=== PATIENT | female | born 1950 | race Two or more races ===

== ENCOUNTER 2017-08-18 12:48 | Emergency (ER) | payer OTHER ==
[~2017-08-18] VITALS: Ht 160 cm; Wt 54.9 kg
[2017-08-18] MEDS ORDERED: Ketorolac 30mg Inj IM ONE (13:00)
[2017-08-18] MEDS ORDERED: Methocarbamol 750mg tab ORAL ONE (13:00)
--- NOTE | 2017-08-18 13:10 | Emergency Room Report ---
History of Present Illness General Chief Complaint: Pain Source: Patient (BETH MCINTOSH) Present Illness HPI 67 y/o female c/o right rib pain x 5-6 days. States that she was leaning against a box and felt a pop in her right rib in the area where she suffered a rib fracture 1 year ago. Patient states she has pain with twisting, bending and sitting and that its tender to palpation. States pain is also present when coughing and movements of chest wall. Patient tried 400mg ibuprofen w/o improvement, last taken yesterday. Patient has a hx of osteoperosis and family is worried she may have fractured her rib at site of previous fracture as a result. Patient denies any numbness, tingling, pressure, paralysis, cyanosis, bruising, loss of sensation, loss of range of motion, n/v/f/c/d, abd pain, back pain, neck pain, photophobia, phonophobia, CP, SOB or headache. (BETH MCINTOSH) Allergies: Coded Allergies: No Known Allergies (Unverified , 08/18/17) Patient History Limited by: language barrier Past Medical History: see triage record Pertinent Family History: none Reviewed Nursing Documentation: PMH: Agreed, PSxH: Agreed (BETH MCINTOSH) Nursing Documentation-PMH Past Medical History: No Stated History (BETH MCINTOSH) Review of Systems All Other Systems: negative except mentioned in HPI (BETH MCINTOSH) Physical Exam Vital Signs Date Time Temp Pulse Resp B/P (MAP) Pulse Ox O2 Delivery O2 Flow Rate FiO2 08/18/17 12:58 98.1 60 18 116/61 98 Room Air Sp02 EP Interpretation: reviewed, normal General Appearance: no apparent distress, alert, GCS 15, non-toxic Head: normocephalic, atraumatic Eyes: bilateral eye normal inspection, bilateral eye PERRL ENT: normal ENT inspection, normal pharynx, no angioedema Neck: full range of motion, no bony tend, supple/symm/no masses Respiratory: lungs clear, normal breath sounds, speaking full sentences, chest symmetrical Cardiovascular #1: regular rate, rhythm, no edema Gastrointestinal: non tender, soft Musculoskeletal: back normal, gait/station normal, normal range of motion, tender - right inferior ribs mid axillary line Neurologic: alert, oriented x3, responsive, motor strength/tone normal, sensory intact, speech normal Psychiatric: judgement/insight normal, memory normal, mood/affect normal, no suicidal/homicidal ideation Skin: normal color, no rash, warm/dry, well hydrated (BETH MCINTOSH P.A.) Medical Decision Making PA Attestation Dr. Delacruz is my supervising physician with whom patient management has been discussed with. (BETH MCINTOSH.A.) Diagnostic Impression: Primary Impression: Multiple rib fractures Qualified Codes: S22.41XA - Multiple fractures of ribs, right side, initial encounter for closed fracture ER Course Pt. presents to the ED c/o right rib pain Ddx considered but are not limited to fracture, contusion, sprain, strain, PE, pleurisy, biliary colic Vital signs: are WNL, pt. is afebrile H&PE are most consistent with non displaced fracture of 11th and 12th right ribs. Confirmed by XR and spoke with radiologist. ORDERS: XR Right Ribs w/ AP view is negative ED INTERVENTIONS: Toradol 30mg and Robaxin 750mg. DISCHARGE: At this time pt. is stable for d/c to home. Patient states her pain is well controlled with treatment received. Advised to f/u with PCP next week for management of condition. Will provide printed patient care instructions, and any necessary prescriptions. Care plan and follow up instructions have been discussed with the patient prior to discharge. (BETH MCINTOSH P.A.) Chest X-Ray Diagnostic Results Chest X-Ray Diagnostic Results : Electronically Signed by: Frankie documentation reviewed by me and is accurate, Pj Delacruz MD. (Pj Delacruz M.D.) Other X-Ray Diagnostic Results Other X-Ray Diagnostic Results : # of Views/Limited Vs Complete: 4 View Indication: Pain EP Interpretation: Yes PA Xray: Interpretation reviewed, by supervising MD, and agrees with findings. Impression: Other - nondisplaced fracture of the right 11th and 12th rib Electronically Signed by: Beth Mcintosh PA-C (BETH MCINTOSH P.A.) Other X-Ray Diagnostic Results : Electronically Signed by: Frankie documentation reviewed by me and is accurate, Pj Delacruz MD. (Pj Delacruz M.D.) Last Vital Signs Date Time Temp Pulse Resp B/P (MAP) Pulse Ox O2 Delivery O2 Flow Rate FiO2 08/18/17 12:58 98.1 60 18 116/61 98 Room Air Status: unchanged (ROSA MCINTOSHEEM P.A.) Disposition: HOME, SELF-CARE Condition: Improved Scripts Naproxen* (NAPROXEN*) 500 Mg Tablet.dr 500 MG ORAL TWICE A DAY for 10 Days, #20 TAB Prov: MAT MCINTOSHM P.A. 08/18/17 Methocarbamol* (ROBAXIN-750*) 750 Mg Tablet 750 MG PO TID, #30 TAB 0 Refills Prov: MAT MCINTOSHM P.A. 08/18/17 Acetaminophen With Codeine (T#4) (TYLENOL #4 TAB*) Y Tab 1 TAB ORAL Q8H Y for For Pain, #12 TAB 0 Refills Prov: MAT MCINTOSHM P.A. 08/18/17 Additional Instructions: Take medication as directed. Patient advised to follow up with primary care provider within next 3-5 days. Advised patient to use RICE therapy and nsaids as prescribed. Patient is to go to the ER immediately if they experience any pain that is not responding to medication, chest pain, shortness of breath, excess swelling, pressure feeling, loss of color, cyanosis, paralysis, or numbness. BETH MCINTOSH P.AAlyssa Aug 18, 2017 13:10 Pj Delacruz M.D. Aug 18, 2017 22:35
--- NOTE | 2017-08-18 14:26 | Diagnostic Imaging Report ---
Indication: Pain Technique: XRAY Ribs w/PA CXR Uni R Comparison: None Findings: Probable nondisplaced fractures of the posterolateral 10th and 11th ribs. No additional rib fractures identified. There is no pneumothorax. No focal airspace consolidation or pleural effusion. Heart size and mediastinal contours are stable. Impression: Probable nondisplaced fractures of the posterolateral right 10th and 11th ribs. No pneumothorax. No focal airspace consolidation.
[2017-08-18] MEDS ORDERED: ACETAMINOPHEN-1 EAC2 ORAL (14:28)
[2017-08-18] MEDS ORDERED: NAPROXEN500 M1 ORAL (14:28)
[2017-08-18] MEDS ORDERED: ROBAXIN-750750 MG PO (14:28)
[2017-08-18 14:40] VITALS: BP 109/60
== END 2017-08-18 14:40 | disposition home or self-care (01) ==
LOC: EMR 13:00
DX: S22.41XA Multiple fractures of ribs, right side, initial encounter for closed fracture (principal); X58.XXXA Exposure to other specified factors, initial encounter; Y92.9 Unspecified place or not applicable
CPT/HCPCS: 71101; 96372; 99284; J1885

== ENCOUNTER → 2018-01-02 | Outpatient (RCR) | payer OTHER ==
[~2018-01-02] MED LIST: ACETAMINOPHEN-1 EAC2 ORAL; NAPROXEN500 M1 ORAL; ROBAXIN-750750 MG PO
== END | disposition home or self-care (01) ==
LOC: PTY 12:30
DX: G89.29 Other chronic pain (principal); M54.5 Low back pain

== ENCOUNTER 2018-01-10 13:52 | Outpatient (RCR) | payer OTHER | END 2018-02-02 | disposition home or self-care (01) | LOC: PTY 13:52 | DX: G89.29 Other chronic pain (principal) ==